=== PATIENT | male | born 1995 | race Two or more races ===

== ENCOUNTER 2018-05-26 13:31 | Emergency (ER) | payer OTHER ==
[~2018-05-26] VITALS: Ht 182.9 cm; Wt 116.6 kg
[2018-05-26 13:52] VITALS: BP 119/65
[2018-05-26 14:22] LABS: APPEARANCE,URINE CLEAR; BILIRUBIN, URINE NEGATIVE (NEGATIVE); COLOR,URINE PALE YELLOW; GLUCOSE, URINE (UA) NEGATIVE (NEGATIVE); KETONES,URINE NEGATIVE (NEGATIVE); LEUKOCYTE ESTERASE ,URINE NEGATIVE (NEGATIVE); NITRITE,URINE NEGATIVE (NEGATIVE); PH,URINE 7 (4.5-8.0); PROTEIN,URINE NEGATIVE (NEGATIVE); UROBILINOGEN,URINE NORMAL MG/DL (0.0-1.0)
--- NOTE | 2018-05-26 15:00 | Emergency Room Report ---
History of Present Illness General Chief Complaint: Lower Back Pain or Injury Source: Patient Present Illness HPI Mr. Diaz is a pleasant healthy 22-year-old male who presents with left flank pain for several days. He was recently treated for Escherichia coli urinary tract infection with 7 days of antibiotics. Treated at a local clinic. At that time he did have left flank pain. However the severity was only 2-3. Now he has 7 out of 10 severity mostly at rest. he has intermittent colicky pain. Sharp in nature. Not associated with lifting and moving. He denies fever. Denies vomiting. He does not have a primary care physician. He lives in [facility]. He is here visiting friends and relatives. Allergies: Coded Allergies: No Known Allergies (Unverified , 05/26/18) Patient History Past Medical History: none Past Surgical History: none Social History: Denies: smoking, alcohol use, drug use Social History Narrative lives in [facility], [employer] Nursing Documentation-[facility] Past Medical History: No Stated History Review of Systems Constitutional: Denies: fever, malaise Cardiovascular: Denies: chest pain Gastrointestinal: Denies: abdominal pain Musculoskeletal: Reports: back pain All Other Systems: negative except mentioned in HPI Physical Exam Vital Signs Date Time Temp Pulse Resp B/P (MAP) Pulse Ox O2 Delivery O2 Flow Rate FiO2 05/26/18 13:43 98.2 75 18 119/65 95 Room Air 98.2 Sp02 EP Interpretation: reviewed, normal General Appearance: no apparent distress, alert, GCS 15, non-toxic Head: normocephalic, atraumatic Eyes: bilateral eye normal inspection ENT: hearing grossly normal, normal pharynx, no angioedema, normal voice Neck: full range of motion, supple/symm/no masses Respiratory: chest non-tender, lungs clear, normal breath sounds, speaking full sentences Cardiovascular #1: regular rate, rhythm Cardiovascular #2: 2+ carotid (R), 2+ carotid (L), 2+ radial (R), 2+ radial (L) , 2+ dorsalis pedis (R), 2+ dorsalis pedis (L) Gastrointestinal: normal bowel sounds, non tender, soft Genitourinary: normal inspection, no CVA tenderness Musculoskeletal: back normal, gait/station normal, normal range of motion, non- tender, calf tenderness Neurologic: alert, oriented x3, responsive, motor strength/tone normal, sensory intact, speech normal Psychiatric: judgement/insight normal, memory normal, mood/affect normal, no suicidal/homicidal ideation Skin: normal color, no rash, warm/dry, well hydrated Lymphatic: no adenopathy Medical Decision Making Diagnostic Impression: Primary Impression: Left flank pain ER Course Mr. Diaz presents with left flank pain. CT abdomen and pelvis shows possibility of pancreatitis. Patient is aware of the possible diagnoses. Differential diagnosis includes pancreatitis , obstructive uropathy renal colic , muscle strain. I recommended clear liquid diet and pain medication. Last Vital Signs Date Time Temp Pulse Resp B/P (MAP) Pulse Ox O2 Delivery O2 Flow Rate FiO2 05/26/18 13:52 98.2 75 18 119/65 95 Room Air 98.2 TITO RICHARDS May 26, 2018 15:00
--- NOTE | 2018-05-26 16:00 | Diagnostic Imaging Report ---
Indication: Abdominal pain and back pain Technique: Spiral acquisitions obtained through the abdomen and pelvis. No oral contrast utilized, per emergency room physician request No IV contrast utilized, per referring physician request.. Multiplanar reconstructions were generated. Total dose length product 1166.59 mGycm. CTDIvol(s) 19.95 mGy. Dose reduction achieved using automated exposure control Comparison: None Findings: There is equivocal very slight haziness to the fat surrounding the pancreatic head. No focal pancreatic abnormality. However, evaluation is limited by lack of IV contrast administration. The appendix is normal. There is no evidence of diverticulosis or diverticulitis. No small bowel distention. No free or loculated intraperitoneal gas or fluid. The distal esophagus, stomach, duodenum are unremarkable. Lack of IV contrast limits assessment of the other solid organs. The liver, gallbladder, bile ducts, spleen, adrenals, kidneys are all unremarkable. No renal or ureteral calculi, hydronephrosis, or hydroureter. No retroperitoneal or mesenteric mass or adenopathy. Impression: Equivocal very slight haziness to the fat surrounding the pancreatic head. Of doubtful significance, but does raise the possibility of early acute pancreatitis. Correlation with laboratory findings is recommended Otherwise unremarkable exam Negative for evidence of urinary stone disease or obstructive uropathy The CT scanner at [facility] is accredited by the [employer] and the scans are performed using protocols designed to limit radiation exposure to as low as reasonably achievable to attain images of sufficient resolution adequate for diagnostic evaluation.
[2018-05-26] MEDS ORDERED: NORCO 5-325 TA1 EACH ORAL (17:08)
[2018-05-26 17:18] VITALS: BP 119/65
== END 2018-05-26 17:50 | disposition home or self-care (01) ==
LOC: EMR 14:01
DX: R10.9 Unspecified abdominal pain (principal)
CPT/HCPCS: 74176; 81003; 99284